=== PATIENT | male | born 1935 | race Caucasian/White ===

== ENCOUNTER 2018-05-23 05:25 | Inpatient (IN) | payer OTHER ==
[2018-05-18 12:30] LABS: BILIRUBIN,URINE NEGATIVE (NEGATIVE); BLOOD, URINE NEGATIVE (NEGATIVE); CLARITY/URINE CLEAR (CLEAR); COLOR,URINE YELLOW (YELLOW); GLUCOSE,URINE NEGATIVE (NEGATIVE); KETONES,URINE NEGATIVE (NEGATIVE); LEUKOCYTE ESTERASE ,URINE NEGATIVE (NEGATIVE); NITRITE, URINE NEGATIVE (NEGATIVE); PROTEIN URINE NEGATIVE (NEGATIVE); UROBILINOGEN,URINE 0.2 (0.2-1.0)
[2018-05-18 12:40] LABS: BASOPHILS % (AUTO) 0.4 % (0.0-2.0); EOSINOPHILS # (AUTO) 0.2 K/uL (0.0-0.4); EOSINOPHILS % (AUTO) 4.1 % (0.0-4.0); HEMATOCRIT 39.2 % (36-54); HEMOGLOBIN 13.6 g/dL (14.0-18.0); LYMPHOCYTES % (AUTO) 19.1 % (20.5-51.5); MEAN CORPUSCULAR HEMOGLOBIN 36 pg (27-31); MEAN CORPUSCULAR HGB CONC 35 % (32-36); MEAN CORPUSCULAR VOLUME 102 fL (79.0-98.0); MONOCYTES # (AUTO) 0.5 K/uL (0.0-1.0); MONOCYTES % (AUTO) 9.8 % (1.7-9.3); NEUTROPHILS # (AUTO) 3.8 K/uL (1.8-7.7); NEUTROPHILS % (AUTO) 66.6 % (40.0-70.0); PLATELET COUNT (AUTO) 280 K/uL (130-430); RED BLOOD CELL COUNT(AUTO) 3.82 MIL/uL (4.2-6.2); RED CELL DISTRIBUTION WIDTH 13.6 % (9.0-15.0); WHITE BLOOD COUNT (AUTO) 5.5 K/uL (4.8-10.8)
[2018-05-18 12:45] LABS: ANION GAP 5 (5-15); CALCIUM 9.2 mg/dL (8.4-11.0); CHLORIDE 103 mmol/L (98-107); CREATININE 1.08 mg/dL (0.55-1.30); GLUCOSE 112 mg/dL (70-99); POTASSIUM 3.9 mmol/L (3.5-5.1); SODIUM SERUM 138 mmol/L (136-145); UREA NITROGEN, BLOOD 19 mg/dL (8-21)
[2018-05-18 12:49] LABS: INR 1.5 (0.80-1.20)
[~2018-05-23] VITALS: Ht 177.8 cm; Wt 74.8 kg
[~2018-05-23 05:25] MED LIST: ALPR0.25 PO; HCT25 PO; LOSA50TA3 PO; PRO40 PO; SYN50 PO
[2018-05-23] MEDS ORDERED: ACETAMINOPHEN 500 MG TABLET ONE (05:50)
[2018-05-23] MEDS ORDERED: CELECOXIB 200 MG CAPSULE ONE (05:51)
[2018-05-23] MEDS ORDERED: GABAPENTIN 300 MG CAPSULE ONE (05:51)
[2018-05-23] MEDS ORDERED: TRANEXAMIC ACID 650 MG TABLET ONE (05:51)
[2018-05-23] MEDS ORDERED: oxyCODONE HCL 10 MG TAB.ER.12H PO ONE (05:52)
[2018-05-23] MEDS ORDERED: FENO48TA4 PO (06:20)
[2018-05-23] MEDS ORDERED: LEVO75TA7 PO (06:20)
[2018-05-23] MEDS ORDERED: PRO40 PO (06:20)
[2018-05-23] MEDS ORDERED: HYT1 GT (06:20)
[2018-05-23] MEDS ORDERED: RIVA20TA PO (06:20)
[2018-05-23] MEDS ORDERED: HYDR12.585 PO (06:20)
[2018-05-23] MEDS ORDERED: LOSA50TA3 PO (06:20)
[2018-05-23] MEDS ORDERED: COR12.5 PO (06:20)
[2018-05-23] MEDS ORDERED: FLEC50TA2 PO (06:20)
[2018-05-23] MEDS ORDERED: VANCOMYCIN HCL 1000 MG/VIAL IV ONE (07:00)
[2018-05-23] MEDS ORDERED: ONDANSETRON HCL 4 MG/2 ML VIAL IVP ONE (07:00)
[2018-05-23] MEDS ORDERED: ROCURONIUM BROMIDE 10 MG/ML (ZEMURON) IV ONE (07:00)
[2018-05-23] MEDS ORDERED: SEVOFLURANE 15 MIN GAS INH ONE (07:00)
[2018-05-23] MEDS ORDERED: DEXAMETHASONE SOD PHOSPHATE 4 MG/ML VIAL IVP ONE (07:00)
[2018-05-23] MEDS ORDERED: NS 100 ML BAG IV ONE (07:00)
[2018-05-23] MEDS ORDERED: LR 1,000 ML IV.SOLN IV ONE (07:00)
[2018-05-23] MEDS ORDERED: fentaNYL CITRATE 250 MCG/5 ML AMP IV ONE (07:00)
[2018-05-23] MEDS ORDERED: MORPHINE SULFATE 10MG/10ML PF AMP EP ONE (07:00)
[2018-05-23] MEDS ORDERED: DILTIAZEM HCL 25 MG/5 ML VIAL IV ONE (07:00)
[2018-05-23] MEDS ORDERED: EPINEPHrine 1 MG/ML AMP IV ONE (07:00)
[2018-05-23] MEDS ORDERED: PROPOFOL 200MG/ 20ML VIAL (DIPRIVAN) IV ONE (07:00)
[2018-05-23] MEDS ORDERED: TRANEXAMIC ACID 1,000 MG/10 ML VIAL IV ONE (07:00)
[2018-05-23] MEDS ORDERED: KETOROLAC TROMETHAMINE 30 MG VIAL IVP ONE (07:00)
[2018-05-23] MEDS ORDERED: MIDAZOLAM HCL 5 MG/5 ML VIAL IVP ONE (07:00)
[2018-05-23] MEDS ORDERED: POLYMYXIN 500,000/BACIT.10,000 UNITS in NS IRR 1 L IR ONE (07:11)
[2018-05-23] MEDS ORDERED: CEFAZOLIN 2 GM IVPB PREMIX 50 ML IV ONE (07:15)
[2018-05-23] MEDS ORDERED: LR 1,000 ML IV SCH (08:42)
[2018-05-23] MEDS ORDERED: ROPIVACAINE 0.2% 100 ML INJ SCH (08:42)
[2018-05-23] MEDS ORDERED: HYDROmorphone 1 MG INJ. 1 MG/ML AMPUL IVP PRN (08:45)
[2018-05-23] MEDS ORDERED: HYDROcodone/ACETAMIN 10-325 MG TAB PO PRN ×2 (08:45)
[2018-05-23] MEDS ORDERED: HYDROmorphone 2 MG/ML VIAL IVP PRN ×2 (08:45)
[2018-05-23] MEDS ORDERED: MEPERIDINE HCL/PF 25 MG/ML DISP.SYRIN IVP PRN (08:45)
[2018-05-23] MEDS ORDERED: GABAPENTIN 300 MG CAPSULE PO ONE (09:30)
[2018-05-23] MEDS ORDERED: ONDANSETRON HCL 4 MG/2 ML VIAL IVP PRN (09:30)
[2018-05-23] MEDS ORDERED: DIPHENHYDRAMINE HCL 25 MG CAPSULE PO PRN (09:30)
[2018-05-23] MEDS ORDERED: ACETAMINOPHEN 500 MG TABLET PO ONE (09:30)
[2018-05-23] MEDS ORDERED: KETOROLAC TROMETHAMINE 15 MG VIAL IVP PRN ×2 (09:30)
[2018-05-23] MEDS ORDERED: ALPRAZolam 0.25 MG TABLET PO SCH (09:30)
[2018-05-23] MEDS ORDERED: PROMETHAZINE HCL 25 MG/ML AMP IVP PRN (09:30)
[2018-05-23] MEDS ORDERED: CELECOXIB 200 MG CAPSULE PO ONE (09:30)
[2018-05-23] MEDS ORDERED: TRANEXAMIC ACID 650 MG TABLET PO ONE (09:30)
[2018-05-23 11:00] VITALS: BP_SYST 142
[2018-05-23] MEDS: CEFAZOLIN 1 GM IVPB PREMIX 50 ML IV SCH ×2 (12:28→18:52)
[2018-05-23 12:46] VITALS: BP_SYST 142
[2018-05-23] MEDS: ACETAMINOPHEN 500 MG TABLET PO SCH ×2 (15:00→20:51)
[2018-05-23 15:09] VITALS: BP_SYST 137
[2018-05-23] MEDS ORDERED: RIVAROXABAN 10 MG TABLET PO SCH (16:00)
[2018-05-23] MEDS: D5LR 1,000 ML IV SCH (18:53)
[2018-05-23 20:00] VITALS: BP_SYST 143
[2018-05-23] MEDS: CELECOXIB 200 MG CAPSULE PO SCH (20:50)
[2018-05-23] MEDS: GABAPENTIN 300 MG CAPSULE PO SCH (20:50)
[2018-05-23] MEDS: CARVEDILOL 12.5 MG TABLET (COREG) PO SCH (20:51)
[2018-05-23] MEDS: FLECAINIDE ACETATE 50 MG TABLET (TAMBOCOR) PO SCH (20:52)
[2018-05-24] MEDS: oxyCODONE HCL 5 MG TABLET PO PRN ×3 (00:12→22:23)
[2018-05-24 00:25] VITALS: BP_SYST 138
[2018-05-24] MEDS: CEFAZOLIN 1 GM IVPB PREMIX 50 ML IV SCH (02:53)
[2018-05-24] MEDS: D5LR 1,000 ML IV SCH ×2 (05:46→15:23)
[2018-05-24] MEDS: PANTOPRAZOLE SODIUM 40 MG TAB PO SCH (06:26)
[2018-05-24] MEDS: LEVOTHYROXINE SODIUM 0.075 MG TABLET PO SCH (06:26)
[2018-05-24 06:34] LABS: ANION GAP 6 (5-15); CALCIUM 8.7 mg/dL (8.4-11.0); CHLORIDE 104 mmol/L (98-107); CREATININE 1.14 mg/dL (0.55-1.30); GLUCOSE 205 mg/dL (70-99); POTASSIUM 4.1 mmol/L (3.5-5.1); SODIUM SERUM 139 mmol/L (136-145); UREA NITROGEN, BLOOD 16 mg/dL (8-21)
[2018-05-24 07:02] LABS: BASOPHILS % (AUTO) 0.1 % (0.0-2.0); EOSINOPHILS % (AUTO) 0.1 % (0.0-4.0); HEMATOCRIT 33.5 % (36-54); HEMOGLOBIN 11.5 g/dL (14.0-18.0); LYMPHOCYTES # (AUTO) 0.6 K/uL (1.0-5.5); LYMPHOCYTES % (AUTO) 5.2 % (20.5-51.5); MEAN CORPUSCULAR HEMOGLOBIN 35 pg (27-31); MEAN CORPUSCULAR HGB CONC 35 % (32-36); MEAN CORPUSCULAR VOLUME 103 fL (79.0-98.0); MONOCYTES # (AUTO) 0.7 K/uL (0.0-1.0); NEUTROPHILS # (AUTO) 9.8 K/uL (1.8-7.7); NEUTROPHILS % (AUTO) 88.6 % (40.0-70.0); PLATELET COUNT (AUTO) 221 K/uL (130-430); RED BLOOD CELL COUNT(AUTO) 3.26 MIL/uL (4.2-6.2); RED CELL DISTRIBUTION WIDTH 13.6 % (9.0-15.0); WHITE BLOOD COUNT (AUTO) 11.1 K/uL (4.8-10.8)
[2018-05-24] MEDS: CELECOXIB 200 MG CAPSULE PO SCH ×2 (08:24→21:12)
[2018-05-24] MEDS: ACETAMINOPHEN 500 MG TABLET PO SCH ×3 (08:25→21:14)
[2018-05-24] MEDS: FENOFIBRATE NANOCRYSTALLIZED 48 MG TABLET (TRICOR) PO SCH (08:25)
[2018-05-24] MEDS: TERAZOSIN HCL 1 MG CAPSULE (HYTRIN) GT SCH (08:26)
[2018-05-24] MEDS: CARVEDILOL 12.5 MG TABLET (COREG) PO SCH ×2 (08:26→21:15)
[2018-05-24] MEDS: LOSARTAN POTASSIUM 50 MG TABLET (COZAAR) PO SCH (08:26)
[2018-05-24] MEDS: FLECAINIDE ACETATE 50 MG TABLET (TAMBOCOR) PO SCH ×2 (08:27→21:14)
[2018-05-24] MEDS: HYDROCHLOROTHIAZIDE 12.5 MG CAPSULE (HCTZ) PO SCH (08:27)
[2018-05-24 08:32] VITALS: BP_SYST 120
[2018-05-24] MEDS: RIVAROXABAN 10 MG TABLET PO SCH (08:32)
[2018-05-24] MEDS ORDERED: LOSARTAN POTASSIUM 50 MG TABLET (COZAAR) PO SCH (09:00)
[2018-05-24] MEDS ORDERED: PANTOPRAZOLE SODIUM 40 MG TAB PO SCH (09:00)
[2018-05-24] MEDS ORDERED: HYDROCHLOROTHIAZIDE 25 MG TABLET (HCTZ) PO SCH (09:00)
[2018-05-24] MEDS ORDERED: LEVOTHYROXINE SODIUM 0.05 MG TABLET PO SCH (09:00)
[2018-05-24] MEDS: ROPIVACAINE 0.2% 550 ML INJ SCH (10:26)
[2018-05-24 11:27] VITALS: BP_SYST 131
[2018-05-24 15:15] VITALS: BP_SYST 137
[2018-05-24 20:00] VITALS: BP_SYST 107
[2018-05-24] MEDS: GABAPENTIN 300 MG CAPSULE PO SCH (21:12)
[2018-05-24] MEDS: SENNOSIDES 8.6 MG TABLET PO PRN (21:12)
[2018-05-25 00:05] VITALS: BP_SYST 116
[2018-05-25] MEDS: MORPHINE 4 MG/ML INJ. SYRINGE IVP PRN (00:12)
[2018-05-25] MEDS: D5LR 1,000 ML IV SCH ×3 (01:30→21:30)
[2018-05-25] MEDS: PANTOPRAZOLE SODIUM 40 MG TAB PO SCH (06:26)
[2018-05-25] MEDS: LEVOTHYROXINE SODIUM 0.075 MG TABLET PO SCH (06:26)
[2018-05-25 07:00] LABS: BASOPHILS % (AUTO) 0.5 % (0.0-2.0); EOSINOPHILS # (AUTO) 0.1 K/uL (0.0-0.4); EOSINOPHILS % (AUTO) 2.2 % (0.0-4.0); HEMATOCRIT 31.2 % (36-54); HEMOGLOBIN 10.9 g/dL (14.0-18.0); LYMPHOCYTES % (AUTO) 15.1 % (20.5-51.5); MEAN CORPUSCULAR HEMOGLOBIN 36 pg (27-31); MEAN CORPUSCULAR HGB CONC 35 % (32-36); MEAN CORPUSCULAR VOLUME 103 fL (79.0-98.0); MONOCYTES # (AUTO) 0.7 K/uL (0.0-1.0); MONOCYTES % (AUTO) 11.1 % (1.7-9.3); NEUTROPHILS # (AUTO) 4.8 K/uL (1.8-7.7); NEUTROPHILS % (AUTO) 71.1 % (40.0-70.0); PLATELET COUNT (AUTO) 216 K/uL (130-430); RED BLOOD CELL COUNT(AUTO) 3.04 MIL/uL (4.2-6.2); WHITE BLOOD COUNT (AUTO) 6.6 K/uL (4.8-10.8)
[2018-05-25] MEDS: oxyCODONE HCL 5 MG TABLET PO PRN ×4 (07:01→23:37)
[2018-05-25 07:55] LABS: BILIRUBIN,URINE NEGATIVE (NEGATIVE); BLOOD, URINE 3+ (NEGATIVE); CLARITY/URINE HAZY (CLEAR); COLOR,URINE YELLOW (YELLOW); GLUCOSE,URINE NEGATIVE (NEGATIVE); KETONES,URINE NEGATIVE (NEGATIVE); LEUKOCYTE ESTERASE ,URINE NEGATIVE (NEGATIVE); NITRITE, URINE NEGATIVE (NEGATIVE); PROTEIN URINE 1+ (NEGATIVE); UROBILINOGEN,URINE 0.2 (0.2-1.0)
[2018-05-25 08:00] VITALS: BP_SYST 138
[2018-05-25 08:19] LABS: BASOPHILS % (AUTO) 0.5 % (0.0-2.0); EOSINOPHILS # (AUTO) 0.2 K/uL (0.0-0.4); EOSINOPHILS % (AUTO) 2.4 % (0.0-4.0); HEMATOCRIT 32.7 % (36-54); HEMOGLOBIN 11.3 g/dL (14.0-18.0); LYMPHOCYTES # (AUTO) 0.9 K/uL (1.0-5.5); LYMPHOCYTES % (AUTO) 13.8 % (20.5-51.5); MEAN CORPUSCULAR HEMOGLOBIN 35 pg (27-31); MEAN CORPUSCULAR HGB CONC 34 % (32-36); MEAN CORPUSCULAR VOLUME 103 fL (79.0-98.0); MONOCYTES # (AUTO) 0.8 K/uL (0.0-1.0); MONOCYTES % (AUTO) 12.2 % (1.7-9.3); NEUTROPHILS # (AUTO) 4.8 K/uL (1.8-7.7); NEUTROPHILS % (AUTO) 71.1 % (40.0-70.0); PLATELET COUNT (AUTO) 197 K/uL (130-430); RED BLOOD CELL COUNT(AUTO) 3.18 MIL/uL (4.2-6.2); RED CELL DISTRIBUTION WIDTH 13.7 % (9.0-15.0); WHITE BLOOD COUNT (AUTO) 6.7 K/uL (4.8-10.8)
[2018-05-25 08:22] LABS: ANION GAP 6 (5-15); CALCIUM 8.7 mg/dL (8.4-11.0); CHLORIDE 103 mmol/L (98-107); CREATININE 1.05 mg/dL (0.55-1.30); GLUCOSE 120 mg/dL (70-99); POTASSIUM 4.2 mmol/L (3.5-5.1); SODIUM SERUM 140 mmol/L (136-145); UREA NITROGEN, BLOOD 20 mg/dL (8-21)
[2018-05-25 08:24] LABS: INR 1.5 (0.80-1.20)
[2018-05-25] MEDS: CELECOXIB 200 MG CAPSULE PO SCH ×2 (08:42→21:04)
[2018-05-25] MEDS: CARVEDILOL 12.5 MG TABLET (COREG) PO SCH ×2 (08:43→21:04)
[2018-05-25] MEDS: TERAZOSIN HCL 1 MG CAPSULE (HYTRIN) GT SCH (08:44)
[2018-05-25] MEDS: FENOFIBRATE NANOCRYSTALLIZED 48 MG TABLET (TRICOR) PO SCH (08:45)
[2018-05-25] MEDS: FLECAINIDE ACETATE 50 MG TABLET (TAMBOCOR) PO SCH ×2 (08:45→21:05)
[2018-05-25] MEDS: HYDROCHLOROTHIAZIDE 12.5 MG CAPSULE (HCTZ) PO SCH (08:46)
[2018-05-25] MEDS: LOSARTAN POTASSIUM 50 MG TABLET (COZAAR) PO SCH (08:46)
[2018-05-25] MEDS: ACETAMINOPHEN 500 MG TABLET PO SCH ×3 (08:47→21:05)
[2018-05-25] MEDS: RIVAROXABAN 10 MG TABLET PO SCH (08:50)
[2018-05-25 09:05] LABS: BACTERIA,URINE FEW /HPF (None Seen); MUCUS,URINE None Seen /LPF (None Seen); RBC,URINE 20-50 /HPF (0-3); YEAST,URINE None Seen /HPF (None Seen)
[2018-05-25] MEDS: ROPIVACAINE 0.2% 550 ML INJ SCH (09:30)
[2018-05-25 12:00] VITALS: BP_SYST 84
[2018-05-25 16:00] VITALS: BP_SYST 115
[2018-05-25 20:00] VITALS: BP_SYST 128
[2018-05-25] MEDS: SENNOSIDES 8.6 MG TABLET PO PRN (21:04)
[2018-05-25] MEDS: GABAPENTIN 300 MG CAPSULE PO SCH (21:05)
[2018-05-26 00:14] VITALS: BP_SYST 121
[2018-05-26] MEDS: MORPHINE 4 MG/ML INJ. SYRINGE IVP PRN (01:20)
[2018-05-26] MEDS: PANTOPRAZOLE SODIUM 40 MG TAB PO SCH (06:51)
[2018-05-26] MEDS: LEVOTHYROXINE SODIUM 0.075 MG TABLET PO SCH (06:51)
[2018-05-26 07:13] LABS: CALCIUM 8.6 mg/dL (8.4-11.0); CREATININE 1.03 mg/dL (0.55-1.30); GLUCOSE 141 mg/dL (70-99); POTASSIUM 4.1 mmol/L (3.5-5.1); SODIUM SERUM 138 mmol/L (136-145); UREA NITROGEN, BLOOD 18 mg/dL (8-21)
[2018-05-26 07:16] LABS: BASOPHILS % (AUTO) 0.2 % (0.0-2.0); EOSINOPHILS # (AUTO) 0.3 K/uL (0.0-0.4); EOSINOPHILS % (AUTO) 4.7 % (0.0-4.0); HEMATOCRIT 30.4 % (36-54); HEMOGLOBIN 10.2 g/dL (14.0-18.0); LYMPHOCYTES # (AUTO) 0.8 K/uL (1.0-5.5); LYMPHOCYTES % (AUTO) 11.9 % (20.5-51.5); MEAN CORPUSCULAR HEMOGLOBIN 35 pg (27-31); MEAN CORPUSCULAR HGB CONC 34 % (32-36); MEAN CORPUSCULAR VOLUME 103 fL (79.0-98.0); MONOCYTES # (AUTO) 0.9 K/uL (0.0-1.0); MONOCYTES % (AUTO) 12.8 % (1.7-9.3); NEUTROPHILS # (AUTO) 5.1 K/uL (1.8-7.7); NEUTROPHILS % (AUTO) 70.4 % (40.0-70.0); PLATELET COUNT (AUTO) 195 K/uL (130-430); RED BLOOD CELL COUNT(AUTO) 2.95 MIL/uL (4.2-6.2); RED CELL DISTRIBUTION WIDTH 13.6 % (9.0-15.0); WHITE BLOOD COUNT (AUTO) 7.1 K/uL (4.8-10.8)
[2018-05-26] MEDS: D5LR 1,000 ML IV SCH (07:30)
[2018-05-26 08:00] VITALS: BP_SYST 139
[2018-05-26 08:12] LABS: ANION GAP 5 (5-15); CHLORIDE 104 mmol/L (98-107)
[2018-05-26] MEDS: TERAZOSIN HCL 1 MG CAPSULE (HYTRIN) GT SCH (08:39)
[2018-05-26] MEDS: LOSARTAN POTASSIUM 50 MG TABLET (COZAAR) PO SCH (08:39)
[2018-05-26] MEDS: HYDROCHLOROTHIAZIDE 12.5 MG CAPSULE (HCTZ) PO SCH (08:39)
[2018-05-26] MEDS: CELECOXIB 200 MG CAPSULE PO SCH (08:39)
[2018-05-26] MEDS: FENOFIBRATE NANOCRYSTALLIZED 48 MG TABLET (TRICOR) PO SCH (08:40)
[2018-05-26] MEDS: ACETAMINOPHEN 500 MG TABLET PO SCH ×2 (08:40→14:24)
[2018-05-26] MEDS: FLECAINIDE ACETATE 50 MG TABLET (TAMBOCOR) PO SCH (08:41)
[2018-05-26] MEDS: CARVEDILOL 12.5 MG TABLET (COREG) PO SCH (08:41)
[2018-05-26] MEDS: RIVAROXABAN 10 MG TABLET PO SCH (08:43)
[2018-05-26 12:35] VITALS: BP_SYST 128
[2018-05-26 16:40] VITALS: BP_SYST 137
[2018-05-26 18:01] VITALS: BP_SYST 135
[2018-05-26 18:12] VITALS: BP_SYST 128
== END 2018-05-26 18:20 | disposition home health service (06) | DRG 470 ==
LOC: SMU 05:25 → EDSTATUS 08:42 → STU 11:09 → SMU 05-26 10:01
PROVIDERS: ADMIT Orthopaedic Surgery; ATTEND Orthopaedic Surgery
PROC: 0SRD0J9 Replacement of Left Knee Joint with Synthetic Substitute, Cemented, Open Approach (ICD-10-PCS; principal; 2018-05-23 07:30)
DX: M17.12 Unilateral primary osteoarthritis, left knee (principal); E78.5 Hyperlipidemia, unspecified; E03.9 Hypothyroidism, unspecified; R31.9 Hematuria, unspecified; I10 Essential (primary) hypertension; N40.1 Benign prostatic hyperplasia with lower urinary tract symptoms; R33.8 Other retention of urine; M25.762 Osteophyte, left knee; I48.91 Unspecified atrial fibrillation; Z87.891 Personal history of nicotine dependence; Z86.718 Personal history of other venous thrombosis and embolism; Z79.899 Other long term (current) drug therapy; Z79.01 Long term (current) use of anticoagulants
CPT/HCPCS: 36415; 71046-TC; 80048; 81000-TC; 81003; 85025; 85610-TC; 85730-TC; 87081; 88305; 88311; 94010; 94760; 97039; 97110-GP; 97116-GP; 97530-GP; C1713; C1776; J0171; J0690; J1100; J1885; J2250; J2270; J2274; J2405; J2704; J2795; J3010; J3370; J3490; J7120

== ENCOUNTER 2018-06-03 12:25 | Outpatient (CLI) | payer OTHER ==
[~2018-06-03 12:25] MED LIST changes: +COR12.5 PO; +FENO48TA4 PO; +FLEC50TA2 PO; +HYDR12.585 PO; +HYT1 GT; +LEVO75TA7 PO; +RIVA20TA PO
== END 2018-06-03 18:13 | disposition home or self-care (01) ==
LOC: SUS 12:25
PROVIDERS: ATTEND Orthopaedic Surgery
DX: M79.662 Pain in left lower leg (principal); I10 Essential (primary) hypertension; Z72.89 Other problems related to lifestyle
CPT/HCPCS: 93971

== ENCOUNTER 2018-06-27 15:49 | Outpatient (CLI) | payer OTHER | END 2018-06-27 20:39 | disposition home or self-care (01) | LOC: SUS 15:49 | PROVIDERS: ATTEND Orthopaedic Surgery | DX: M79.662 Pain in left lower leg (principal); M79.661 Pain in right lower leg | CPT/HCPCS: 93970 ==